=== PATIENT | female | born 1960 | race Caucasian/White ===

== ENCOUNTER → 2016-12-02 | Outpatient (CLI) | payer OTHER ==
[~2016-12-02] MED LIST: GABA300C3 PO; GLYB25TA PO; LOSA50TA20 PO; NORV5TAB PO; OMEP20CA3 PO; PROZ20CA11 PO; ZOCO10TA PO
--- NOTE | 2016-12-02 14:54 | REPMRS ---
Patient History The patient states she had a clinical breast exam in 12/2016. Patient is postmenopausal. Family history of breast cancer in mother at age 65 and colorectal cancer in paternal cousin at age 50 or over. Benign stereotactic core biopsy of the right breast, 2004. Digital Woman Screen Mammo: December 02, 2016 - Exam #: [id number] Bilateral CC and MLO view(s) were taken. Technologist: Lorraine Strong, Technologist Prior study comparison: November 06, 2015, digital woman screen mammo performed at [facility] [employer] [facility]. October 15, 2014, digital woman screen mammo performed at [facility] [employer] [facility]. October 16, 2013, digital woman screen mammo performed at [facility] [employer] [facility]. FINDINGS: There are scattered fibroglandular densities. There is a moderate amount of residual fibroglandular tissue which is fairly symmetric. There is no interval development of dominant mass, architectural distortion, or clustered microcalcification typical of malignancy. There has been no change in the appearance of the mammogram from the prior studies. ASSESSMENT: BI-RADS/ACR category 1 mammogram. Negative. Recommendation Routine screening mammogram of both breasts in 1 year (for women over age 40). This mammogram was interpreted with the aid of an FDA-approved computer-aided dectection system. Electronically Signed By: Jh Barboza MD 12/02/16 [id number]
== END ==
LOC: M WHC 13:04
PROVIDERS: ATTEND Nurse Practitioner Family
DX: Z12.31 Encounter for screening mammogram for malignant neoplasm of breast (principal)

== ENCOUNTER → 2017-02-25 | Outpatient (CLI) | payer OTHER ==
[~2017-02-25] MED LIST changes: +GABA-282 PO; -GABA300C3 PO
[2017-02-25 12:12] LABS: BASO % 0.4 % (0.0-1.0); EOS # 0.2 K/mm3 (0.0-0.50); EOS % 2.3 % (0.0-3.0); LARGE UNSTAINED CELL # 0.1 K/mm3 (0.0-0.4); LARGE UNSTAINED CELL % 1.6 % (0.0-4.0); LYMPH # 2.5 K/mm3 (1.5-4.5); LYMPH % 33.1 % (24.0-44.0); MEAN CORPUSCULAR HEMOGLOBIN 32.4 pg (27.0-33.0); MEAN CORPUSCULAR HGB CONC 33.5 g/dl (32.0-36.5); MEAN CORPUSCULAR VOLUME 96.7 fl (80.0-96.0); MONO # 0.4 K/mm3 (0.0-0.8); MONO % 5.7 % (0.0-5.0); NEUTROPHILS # 4.4 K/mm3 (1.8-7.7); PLATELET COUNT, AUTOMATED 288 k/mm3 (150-450); RED CELL DISTRIBUTION WIDTH 12.8 % (11.5-14.5); WHITE BLOOD COUNT 7.6 K/mm3 (4.0-10.0)
[2017-02-25 12:33] LABS: ALBUMIN 4.1 GM/DL (3.2-5.2); ALBUMIN/GLOBULIN RATIO 1.08 (1.00-1.93); ALKALINE PHOSPHATASE 104 U/L (45-117); ALT/SGPT 26 U/L (12-78); ANION GAP 4 MEQ/L (8-16); AST/SGOT 23 U/L (15-37); BILIRUBIN,TOTAL 0.3 MG/DL (0.2-1.0); BLOOD UREA NITROGEN 14 MG/DL (7-18); CALCIUM LEVEL 9.2 MG/DL (8.5-10.1); CARBON DIOXIDE LEVEL 29 MEQ/L (21-32); CHLORIDE LEVEL 108 MEQ/L (98-107); CHOLESTEROL LEVEL 216 MG/DL (<200); CREATININE FOR GFR 0.83 MG/DL (0.55-1.02); GLOMERULAR FILTRATION RATE > 60.0 (>51); GLUCOSE, FASTING 89 MG/DL (70-105); POTASSIUM SERUM 4.6 MEQ/L (3.5-5.1); SODIUM LEVEL 141 MEQ/L (136-145); TOTAL PROTEIN 7.9 GM/DL (6.4-8.2); TRIGLYCERIDES LEVEL 70 MG/DL (<150)
[2017-02-25 12:34] LABS: VITAMIN B12 LEVEL 366 PG/ML (247-911)
== END ==
LOC: M LAB 11:18
PROVIDERS: ATTEND Physician Assistant Medical
DX: Z13.220 Encounter for screening for lipoid disorders (principal)

== ENCOUNTER → 2017-03-04 | Outpatient (CLI) | payer OTHER ==
--- NOTE | 2017-03-08 13:55 | DEXA ---
AP SPINE L1 - L4 0.666 -4.3 -2.3 LT FEMUR TOTAL 0.589 -3.3 -1.9 RT FEMUR TOTAL 0.647 -2.9 -1.4 TOTAL BODY TOTAL OTHER DUAL FEMUR FRAX* ASSESSMENT Risk factors: Tobacco use. 10 year probability of fracture Major osteoporotic fracture 12.8 % Hip fracture 5.8 % COMMENTS: There is osteoporosis of the spine and hips. FOLLOW-UP: Recommendation for the next bone density exam: 2 years. RUFUSD
== END ==
LOC: M WHC 13:55
PROVIDERS: ATTEND Physician Assistant Medical
DX: Z13.820 Encounter for screening for osteoporosis (principal); M81.0 Age-related osteoporosis without current pathological fracture

== ENCOUNTER → 2018-06-07 | Outpatient (CLI) | payer OTHER | LOC: M WHC 14:31 | DX: Z12.31 Encounter for screening mammogram for malignant neoplasm of breast (principal) | CPT/HCPCS: 77067 ==

== ENCOUNTER → 2019-06-08 | Outpatient (CLI) | payer OTHER ==
[~2019-06-08] MED LIST changes: +BRONCHW PO; -GABA-282 PO; +GABA-843 PO; -LOSA50TA20 PO; +LOSA50TA88 PO; -OMEP20CA3 PO; +OMEP20CA4 PO; +SING10TA32 PO; +[UNRECOGNIZED DRUG - CODE] PO
--- NOTE | 2019-06-08 16:13 | REPMRS ---
Patient History The patient states she had a clinical breast exam in 06/2019. Patient is postmenopausal. Family history of breast cancer at age 65 in mother, colorectal cancer at age 50 or over in paternal cousin, breast cancer at age 63 in sister. Benign stereotactic core biopsy of the right breast, 2003. No Hormone Replacement Therapy 3D TOMOSYNTHESIS WAS PERFORMED. The [facility] lifetime risk for breast cancer is 16.4%. Digital Woman Screen Mammo: June 08, 2019 - Exam #: [id number] Bilateral CC and MLO view(s) were taken. Technologist: Lorraine Strong, Technologist Prior study comparison: June 07, 2018, bilateral digital woman screen mammo performed at [facility]. December 02, 2016, digital woman screen mammo performed at [facility]. FINDINGS: The breast tissue is heterogeneously dense. This may lower the sensitivity of mammography. There has been no change in the appearance of the mammogram from the prior studies. There is a moderate amount of residual fibroglandular tissue which is fairly symmetric. There is no interval development of dominant mass, areas of architectural distortion, or clustered microcalcification typical of malignancy. Assessment: BI-RADS/ACR category 1 mammogram. Negative Mammogram. Recommendation Routine screening mammogram in 1 year (for women over age 40). This mammogram was interpreted with the aid of an FDA-approved computer-aided dectection system. Electronically Signed By: Deon Fisher MD 06/08/19 [id number]
== END ==
LOC: M WHC 15:20
PROVIDERS: ATTEND Nurse Practitioner Family
DX: Z12.31 Encounter for screening mammogram for malignant neoplasm of breast (principal); Z78.0 Asymptomatic menopausal state; Z80.3 Family history of malignant neoplasm of breast

== ENCOUNTER 2019-06-13 07:14 | Day surgery (SDC) | payer OTHER ==
[~2019-06-13] VITALS: Ht 152.4 cm; Wt 38.1 kg
[2019-06-13] MEDS ORDERED: NS 1,000 ML IV ONE (07:30)
[2019-06-13] MEDS ORDERED: PROPOFOL 200 MG/20 ML VIAL As Ordered ONE ×2 (08:10→08:30)
[2019-06-13] MEDS ORDERED: LIDOCAINE 2% INJ 100 MG/5 ML SDV (FOR ANES.) As Ordered ONE (08:11)
--- NOTE | 2019-06-13 08:40 | ROOR ---
Patient Name: Mar Gandara Procedure Date: 06/13/2019 8:07 AM Date of : 1960 Age: 59 Room: [facility] Gender: Female Note Status: Finalized Procedure: Colonoscopy Indications: High risk colon cancer surveillance: Personal history of colonic polyps Providers: Chun HENRIQUEZ MD Referring MD: OVIDIO CHRISTIANSON NP Requesting Provider: Medicines: Monitored Anesthesia Care Complications: No immediate complications. Procedure: Pre-Anesthesia Assessment: - The heart rate, respiratory rate, oxygen saturations, blood pressure, adequacy of pulmonary ventilation, and response to care were monitored throughout the procedure. The Colonoscope was introduced through the anus and advanced to the cecum, identified by appendiceal orifice and ileocecal valve. The colonoscopy was performed without difficulty. The patient tolerated the procedure well. The quality of the bowel preparation was fair. Findings: The perianal and digital rectal examinations were normal. Three flat polyps were found in the sigmoid colon, splenic flexure and hepatic flexure. The polyps were 6 to 10 mm in size. These polyps were removed with a piecemeal technique using a cold snare. Resection and retrieval were complete. Small Internal Hemorrhoids. The colon (entire examined portion) was tortuous. The exam was otherwise without abnormality on direct and retroflexion views. Impression: - Preparation of the colon was fair. - Three 6 to 10 mm polyps in the sigmoid colon, at the splenic flexure and at the hepatic flexure, removed piecemeal using a cold snare. Resected and retrieved. - Small Internal Hemorrhoids. - Tortuous colon. - The examination was otherwise normal on direct and retroflexion views. Recommendation: - Repeat colonoscopy in 3 years for adenoma surveillance. - Repeat colonoscopy in 3 years because the bowel preparation was suboptimal. Chun Henriquez MD Chun HENRIQUEZ MD 06/13/2019 8:40:12 AM Electronically signed by Chun HENRIQUEZ MD Number of Addenda: 0 Note Initiated On: 06/13/2019 8:07 AM Estimated Blood Loss: Estimated blood loss: none.
[2019-06-13 09:00] VITALS: BP 116/55
== END 2019-06-13 09:04 | disposition home or self-care (01) ==
LOC: M OPP 07:14
PROVIDERS: ATTEND Internal Medicine Gastroenterology
DX: Z12.11 Encounter for screening for malignant neoplasm of colon (principal); Z86.010 Personal history of colon polyps; D12.3 Benign neoplasm of transverse colon; K63.5 Polyp of colon; K64.8 Other hemorrhoids; Q43.8 Other specified congenital malformations of intestine; Z88.0 Allergy status to penicillin; Z91.038 Other insect allergy status; J30.2 Other seasonal allergic rhinitis; F17.210 Nicotine dependence, cigarettes, uncomplicated

== ENCOUNTER → 2021-11-11 | Outpatient (CLI) | payer OTHER ==
[~2021-11-11] MED LIST changes: +GABA-282 PO; -GABA-843 PO; +GLYB2.5T7 PO; -GLYB25TA PO; +LOSA50TA28 PO; -LOSA50TA88 PO; +OMEP1CAP73 PO; -OMEP20CA4 PO
== END ==
LOC: M WHC 10:46
PROVIDERS: ATTEND Nurse Practitioner Women's Health
DX: Z12.31 Encounter for screening mammogram for malignant neoplasm of breast (principal); R92.8 Other abnormal and inconclusive findings on diagnostic imaging of breast

== ENCOUNTER → 2021-11-27 | Outpatient (CLI) | payer OTHER | LOC: M WHC 13:00 | PROVIDERS: ATTEND Nurse Practitioner Women's Health | DX: Z12.31 Encounter for screening mammogram for malignant neoplasm of breast (principal) | CPT/HCPCS: 77065; G0279 ==

== ENCOUNTER → 2022-07-01 | Outpatient (CLI) | payer OTHER ==
[~2022-07-01] MED LIST changes: +CLAR5TAB7 PO; +COMBAER6 INH; +SIMV-252 PO; -ZOCO10TA PO
== END ==
LOC: M LABSMTC 11:13
PROVIDERS: ATTEND Anesthesiology
DX: Z01.812 Encounter for preprocedural laboratory examination (principal); Z11.52 Encounter for screening for COVID-19

== ENCOUNTER → 2022-07-30 | Outpatient (CLI) | payer OTHER | LOC: M LABSMTC 11:24 | PROVIDERS: ATTEND Anesthesiology | DX: Z01.812 Encounter for preprocedural laboratory examination (principal); Z11.52 Encounter for screening for COVID-19 ==

== ENCOUNTER 2022-08-04 07:02 | Day surgery (SDC) | payer OTHER ==
[~2022-08-04] VITALS: Ht 152.4 cm; Wt 41.7 kg
[~2022-08-04 07:02] MED LIST changes: +NS 1,000 ML IV ONE
== END 2022-08-04 10:12 | disposition home or self-care (01) ==
LOC: M OPP 07:02
PROVIDERS: ATTEND Internal Medicine Gastroenterology
DX: Z86.010 Personal history of colon polyps (principal); Z53.8 Procedure and treatment not carried out for other reasons

== ENCOUNTER → 2022-09-07 | Outpatient (CLI) | payer OTHER ==
[~2022-09-07] MED LIST changes: -NS 1,000 ML IV ONE
== END ==
LOC: M LABSMTC 11:06
PROVIDERS: ATTEND Anesthesiology
DX: Z01.812 Encounter for preprocedural laboratory examination (principal); Z20.822 Contact with and (suspected) exposure to COVID-19

== ENCOUNTER 2022-09-10 09:26 | Day surgery (SDC) | payer OTHER ==
[~2022-09-10] VITALS: Ht 152.4 cm; Wt 39.0 kg
[~2022-09-10 09:26] MED LIST changes: +NS 1,000 ML IV ONE
[2022-09-10 12:28] VITALS: BP 99/58
== END 2022-09-10 12:37 | disposition home or self-care (01) ==
LOC: M OPP 09:26
PROVIDERS: ATTEND Internal Medicine Gastroenterology
DX: Z12.11 Encounter for screening for malignant neoplasm of colon (principal); Z86.010 Personal history of colon polyps; D12.0 Benign neoplasm of cecum; D12.2 Benign neoplasm of ascending colon; D12.3 Benign neoplasm of transverse colon; K63.5 Polyp of colon; K57.30 Diverticulosis of large intestine without perforation or abscess without bleeding; M19.90 Unspecified osteoarthritis, unspecified site; F41.9 Anxiety disorder, unspecified; Z80.3 Family history of malignant neoplasm of breast; Z83.71 Family history of colonic polyps; Z79.51 Long term (current) use of inhaled steroids; Z79.899 Other long term (current) drug therapy; Z88.0 Allergy status to penicillin; Z91.030 Bee allergy status

== ENCOUNTER → 2023-01-27 | Outpatient (REF) | payer OTHER ==
[~2023-01-27] MED LIST changes: +MONT-5 PO; -NS 1,000 ML IV ONE; -SING10TA32 PO
== END ==
LOC: M SFHCWAGY 17:39
PROVIDERS: ATTEND Nurse Practitioner Family
DX: Z12.4 Encounter for screening for malignant neoplasm of cervix (principal); R87.610 Atypical squamous cells of undetermined significance on cytologic smear of cervix (ASC-US)

== ENCOUNTER → 2023-11-10 | Outpatient (CLI) | payer OTHER | LOC: M LAB 14:21 | PROVIDERS: ATTEND Registered Nurse | DX: Z02.1 Encounter for pre-employment examination (principal) ==

== ENCOUNTER → 2024-04-28 | Outpatient (CLI) | payer MEDICARE, OTHER | LOC: M RAD 11:00 | PROVIDERS: ATTEND Physician Assistant | DX: M20.21 Hallux rigidus, right foot (principal); M25.774 Osteophyte, right foot; M25.571 Pain in right ankle and joints of right foot ==

== ENCOUNTER → 2024-10-25 | Outpatient (CLI) | payer MEDICARE, OTHER ==
[~2024-10-25] MED LIST changes: +GABA-1172 PO; -GABA-282 PO
== END ==
LOC: M WHC 09:47
PROVIDERS: ATTEND Registered Nurse
DX: E07.89 Other specified disorders of thyroid (principal)